=== PATIENT | female | born 1960 ===

== ENCOUNTER → 2023-03-10 13:37 | Outpatient (CLI) | payer BC, SELFPAY ==
--- NOTE | ~2023-03-10 | US_ITS ---
EXAMINATION: US pelvic complete w TV DATE: 03/10/2023 14:14 INDICATION: Postmenopausal bleeding TECHNIQUE: Multiple transabdominal and endovaginal sonographic images of the pelvis were obtained. COMPARISON: None. FINDINGS: The uterus measures 7.8 x 3.3 x 4.8 cm. A 1.9 x 1.5 cm hypoechoic area of the uterine fundu s has the appearance of an intramural fibroid. The endometrial complex measures 4 mm. The right ovary measures 1.5 x 1.0 x 2.1 cm. The left ovary measures 2.2 x 1.2 x 1.4 cm. There is normal vascular fl ow in the ovaries. There is no free fluid in the pelvis. IMPRESSION: 1. No sonographic correlate for the patient's symptoms. Reviewed, dictated and finalized at location B.
== END ==
PROVIDERS: PCP Nurse Practitioner Obstetrics & Gynecology; Visit Provider Nurse Practitioner Obstetrics & Gynecology
DX: N95.0 Postmenopausal bleeding (principal)
CPT/HCPCS: 76830; 76856